=== PATIENT | male | born 1970 | race Caucasian/White ===

== ENCOUNTER 2025-03-08 15:34 | Outpatient (CLI) | payer OTHER, SELFPAY ==
--- NOTE | ~2025-03-08 | CT_ITS ---
EXAMINATION:CT lung screening DATE: 03/08/2025 15:49 INDICATION: Personal history of nicotine dependence. TECHNIQUE: Computed tomography (CT) of the chest was performed without intravenous contrast. Automated exposure control and iterative reconstruction technique were employed. The dose-length product (DLP) was 203.63 mGy-cm. COMPARISON: Chest CT 04/06/2015 FINDINGS: There is mild emphysema. There is a 4.6 x 4.0 cm cavitary mass in right lung upper lobe. There is a stable 6 mm nodule in left lower lobe. There is a stable 4 mm nodule in left lower lobe. No pleural effusion. There is bilateral gynecomastia. The heart size is normal. There are coronary artery calcifications. No pericardial effusion. 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 There is diffuse hepatic steatosis. There is mild thoracic spondylosis. IMPRESSION: 1. Lung RADS category 4B: Very suspicious. CT-guided biopsy of the right upper lobe mass is recommended. I called this result to Magda Ashton. Reviewed, dictated and finalized at location E.
== END 2025-03-08 15:35 | disposition home or self-care (01) ==
LOC: MICIMG 15:35
DX: Z12.2 Encounter for screening for malignant neoplasm of respiratory organs (principal); R91.8 Other nonspecific abnormal finding of lung field; Z87.891 Personal history of nicotine dependence
CPT/HCPCS: 71271

== ENCOUNTER 2025-03-22 08:21 | Outpatient (CLI) | payer OTHER, SELFPAY ==
[2025-03-14 15:22] VITALS: BMI 34.1
--- NOTE | 2025-03-14 15:23 | PC.NURSE ---
[facility] has started construction of its new state of the art ER which will open Spring 2026. With this, we anticipate parking may be a challenge for some our surgical patients and families. Parking spaces are limited but are available for all Surgical, obstetrics, and ER patients sharing this lot. If you arrive and find you are having a hard time finding a parking space, please note that we understand the challenges, please drive around the hospital and park near Hospital Entrance 1. When you enter this entrance, you can ask a volunteer to direct or take you back to the surgical waiting area to check in. We appreciate everyone?s understanding of these expected challenges while we build for your future. Report to the outpatient green pavilion on date _[id number]_ at time _0830_ for procedure Time: _1030_ YOU MAY BE MONITORED AT HOSPITAL FOR UP TO 4 HOURS AFTER YOUR PROCEDURE. A visitor will be allowed to accompany the patient into the hospital. You and your visitor will be asked to self-screen and do not enter if you have any COVID symptoms. A mask is OPTIONAL within the hospital. Patients are to have no food or drink 6 hours prior to procedure time Driving will be restricted after the procedure, you must have a person to drive you home. Labs will be drawn in preop area and once reviewed, you will be taken to radiology area for procedure. When the procedure is completed, you will be taken to outpatient where you will be monitored for several hours. You may have one visitor in this area. Other than holding anti-coagulants, patient may take other medication(s) as scheduled. Prior to your appointment date patients are instructed to hold anti-coagulants after discussing with ordering provider to stop. If unable to discontinue anti-coagulants please notify radiologist. ? No aspirin or warfarin (Coumadin) for 7 days prior to the procedure. ? No clopidogrel (Plavix), ticagrelor (Brilinta), prasugrel (Effient) or dabigatran (Pradaxa) for 5 days prior to the procedure. ? No rivaroxaban (Xarelto), apixaban (Eliquis), dipyridamole (Aggrenox or Persantine) or cilostazol (Pletal) for 2 days prior to the procedure. Medications to discontinue per physician: Date to take last dose: Please leave all valuables, including medications, at home the day of procedure. The hospital will not accept responsibility for valuables. Wear comfortable, loose fitting clothing.? Follow any additional instructions given to you from ordering provider. Telephone instructions given to __Mike__and asked if any additional questions and then verbalized understanding. Patient advised to call scheduling provider office or registration scheduling [phone] if any additional questions.
[2025-03-22] VITALS (8 sets, daily range): BP systolic 122–144; BP diastolic 62–91; PULSE 62–80; RESP 16; TEMP 36.9; O2SAT 98–100
--- NOTE | ~2025-03-22 | CT_ITS ---
EXAMINATION: CT biopsy lung w/imaging DATE: 03/22/2025 12:13 INDICATION: Right upper lobe cavitary mass TECHNIQUE: The procedure including the risks and benefits was discussed with the patient. Risks discussed included infection, approximately 1/20 risk of symptomatic hemorrhage beyond mild hemoptysis, approximately 1/3 risk of pneumothorax, and approximately 1/10 risk of pneumothorax severe enough to wa rrant chest tube placement. The patient understood the risks and agreed to proceed. The patient was placed in the left lateral decubitus position with the arm elevated above the head. The skin overlying the lateral right chest wall was prepped and draped in sterile fashion. Anesthetic was administered with 1% lidocaine subcutaneously. A 19 gauge outer needle was advanced under CT guidance to the lesion of interest. A 20 gauge core biopsy needle was then used to obtain 6 core biopsy specimens. The needle was removed and the entry site was cleaned and dressed. There is a small pneumothorax on the initial postbiopsy radiographs which decreased slightly in size on the subsequent follow-up radiographs in the patient was discharged in good condition. There were no immediate complications. The dose-length product was 179.42 mGy-cm. FINDINGS: CT images demonstrate the outer needle tip adjacent to within the thickened peripheral wall of a 4.6 cm cavitary right upper lobe mass. IMPRESSION: 1. Successful CT-guided biopsy of a thick-walled cavitary right upper lobe mass which is concerning for primary bronchogenic carcinoma. Reviewed, dictated and finalized at location A.
--- NOTE | ~2025-03-22 | XR_ITS ---
Examination: XR chest 1V Clinical History: POST RIGHT LUNG BX Comparison: CT chest 03/08/2025 Technique: Portable AP Findings: Heart size enlarged. Small right pneumothorax. Cavitary lesion right lung as before. No acute bony abnormality. IMPRESSION: 1. Small right pneumothorax. Reviewed, dictated and finalized at location R.
--- NOTE | ~2025-03-22 | XR_ITS ---
EXAMINATION: XR chest 1V portable DATE: 03/22/2025 13:15 INDICATION: Status post right lung percutaneous biopsy TECHNIQUE: frontal view of the chest was obtained. COMPARISON: Chest radiograph dated 03/22/2025 at 12:12 PM FINDINGS: Interval decrease in size of a now very small pneumothorax at the lateral right upper lung zone. Again seen is the biopsied cavitary right upper lobe mass which projects of the right midlung zone. Remainder the lungs are clear. No pulmonary edema, pleural effusion or pneumothorax. The cardiomediastinal silhouette is normal. IMPRESSION: 1. Interval decrease in a now very small iatrogenic right pneumothorax post percutaneous biopsy of a large cavitary right upper lobe mass which is concerning for primary odontogenic carcinoma. Reviewed, dictated and finalized at location A. IMPRESSION: 1. 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
--- NOTE | ~2025-03-22 | XR_ITS ---
EXAM/PROCEDURE: XR chest 1V portable HISTORY: POST RIGHT LUNG BX COMPARISON: 1309 hours TECHNIQUE: 2 AP view(s) of the chest. FINDINGS: LUNGS: The cavitary lesion in the right lung is again noted. PLEURAL SPACES: Clear. There is a small pneumothorax, with lucency seen about the right apex and lateral right upper lung. HEART/ MEDIASTINUM: Normal in appearance. SOFT TISSUES: No significant findings. BONES: No acute osseous abnormality. IMPRESSION: Status post right lung biopsy with small right pneumothorax. Reviewed, dictated and finalized at location A.
--- OUTSIDE RECORDS SUMMARY | 2025-03-22 08:32 | XMS_ITS | Clinical Summary ---
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 Name Role Phone Asher Quinones MD Primary Care Provider Agata jimenes Social History Tobacco Use Types Packs/Day Years Used Date Smoking Tobacco: Never Assessed Sex and Gender Information Value Date Recorded Sex Assigned at Not on file Legal Sex Male 4:14 PM CDT Gender Identity Not on file Sexual Orientation Not on file Last Filed Vital Signs Vital Sign Reading Time Taken Comments Blood Pressure 142/90 08/17/2013 11:33 AM CDT Pulse 73 08/17/2013 11:33 AM CDT Temperature - - Respiratory Rate - - Oxygen Saturation - - Inhaled Oxygen Concentration - - Weight 110.2 kg (243 lb) 08/17/2013 11:33 AM CDT Height 193 cm (6' 4) 08/17/2013 11:33 AM CDT Body Mass Index 29.58 08/17/2013 11:33 AM CDT Plan of Treatment Health Maintenance Due Date Last Done Comments Colorectal Cancer Screening Colonoscopy (10 Years) 1972 Annual Physical 1975 Hepatitis C 1990 DTaP, Tdap and Td Vaccines ( 1 - Tdap) 1991 Hepatitis B Vaccines (1 of 3 - 19+ 3-dose series) 1991 Pneumococcal Vaccine: 50+ Ye ars (1 of 1 - PCV) 2022 Zoster Vaccines (1 of 2) 2022 COVID-19 Vaccine ( - 2024-2 6 season) 2025 Influenza Adult (#1) 2025 Hepatitis A Vaccines Aged Out No long er eligible based on patient's age to complete this topic Meningococcal B Vaccine Aged Out No l onger eligible based on patient's age to complete this topic Meningococcal Vaccine Aged Out No nini george eligible based on patient's age to complete this topic RSV Immunizations Under 20 Months Aged Out No longer eligible based on patient's age to complete this topic Care Teams Flux Plant Operator Relationship Specialty Start Date End Date Asher Quinones MD PCP - General 11/20/10
[2025-03-22 09:25] LABS: Platelet Count Result 215 k/mm3 (150-375)
[2025-03-22 09:39] LABS: INR 0.9; Prothrombin Time 12.3 Seconds (11.1-14.7)
--- NOTE | 2025-03-22 12:02 | S_PTH ---
PATIENT: Blake Parker LOC: [facility] U#:[id number] AGE/SX: 55/M ROOM: RE03/22/[address]: Colin Arredondo MD : 1970 BED: DIS: 03/22/2025 SPEC #: [id number] RECD: 03/22/25 12:50 STATUS: NAYELI BREWER #: [id number] JOHN: 03/22/25 12:[address]: UNKNOWN,DOCTOR DEPT: [facility] Surgical RECD BY: aFnnie Edwards ENTERED: 03/22/25 12:50 SP TYPE: Surgical OTHR DR: Colin Arredondo MD Tissues: A - Lung Biopsy Procedures: P63 Ruiz Keratin Pas with Diastase TTF Unstained Slides Hematoxylin and Eosin Stain Acid Fast Stain Gross and Microscopic Level 4 CK 5 Napsin A
--- NOTE | 2025-03-22 13:24 | SUR.PHASEII ---
1310 PORTABLE CXR DONE.
--- NOTE | 2025-03-22 13:27 | SUR.PHASEII ---
DR. DESAI CALLED TO ASK IF PATIENT CAN DRINK FLUIDS; HE OKAY'D CLEAR LIQUID DIET.
--- NOTE | 2025-03-22 14:55 | SUR.PHASEII ---
PATIENT LAYING MOST OF STAY IN OP AREA ON RIGHT SIDE WITH HOB ELEVATED 20 DEGREES. LAID ON BACK ONLY WHILE DRINKING COFFEE.
--- NOTE | 2025-03-22 15:07 | SUR.PHASEII ---
OCCUPATIONAL THERAPIST WORKING WITH PATIENT. PT UP WALKING; TOLERATING WELL. DR. WANG HERE TO SEE PT.
--- NOTE | 2025-03-22 15:13 | SUR.PHASEII ---
ADDENDUM: DISREGARD PREVIOUS NOTE; RELATED TO DIFFERENT PATIENT.
--- NOTE | 2025-03-22 15:30 | SUR.PHASEII ---
DR. DESAI CALLED TO ASSESS PATIENT BEFORE GOING HOME.
--- NOTE | 2025-03-22 15:50 | SUR.PHASEII ---
DR. LLOYD THEODORE'D PATIENT TO GO HOME.
== END 2025-03-22 15:50 | disposition home or self-care (01) ==
PROVIDERS: Visit Provider Radiology Diagnostic Radiology
PROC: BB24ZZZ Computerized Tomography (CT Scan) of Bilateral Lungs (ICD-10-PCS; CPT 32408; principal; 2025-03-22 10:30)
DX: Z01.818 Encounter for other preprocedural examination (principal); R91.8 Other nonspecific abnormal finding of lung field; J93.9 Pneumothorax, unspecified
CPT/HCPCS: 32408; 36415; 71045; 85049; 85610; 88305; 88312; 88313; 88342